=== PATIENT | female | born 1985 | race Caucasian/White ===

== ENCOUNTER 2017-12-22 09:41 | Emergency (ER) | payer BC ==
[~2017-12-22] VITALS: Ht 162.6 cm; Wt 55.0 kg
[2017-12-22] MEDS ORDERED: SODIUM CHLORIDE 0.9% 1,000 ML IV ONE (09:47)
[2017-12-22] MEDS ORDERED: ONDANSETRON HCL 4MG/2ML VIAL IV STA (09:47)
[2017-12-22] MEDS ORDERED: KETOROLAC 30MG/ML VIAL IV STA (09:55)
[2017-12-22] MEDS ORDERED: DIPHENHYDRAMINE 50MG CAPSULE PO ONE (10:00)
[2017-12-22] MEDS ORDERED: METOCLOPRAMIDE HCL 10MG/2ML VIAL IV ONE (10:00)
[2017-12-22 10:30] LABS: BASOPHILS % 0.2 % (0.0-2.0); EOSINOPHILS % 0.3 % (0.0-5.0); HEMATOCRIT. 36.1 % (36.0-48.0); HEMOGLOBIN. 12.9 g/dL (12.0-16.0); LYMPHOCYTES % 15.9 % (20.0-50.0); MEAN CORPUSCULAR HEMOGLOBIN 33.1 pg (28.0-32.0); MEAN CORPUSCULAR VOLUME 93.1 fL (81.0-99.0); NEUTROPHILS % 77.6 % (40.0-76.0); PLATELET 188 x1000/uL (130-400); RED BLOOD CELL COUNT 3.88 mill/uL (4.2-5.4); RED CELL DISTRIBUTION WIDTH 11.7 % (11.6-14.6)
[2017-12-22 10:43] LABS: CHLORIDE 105 mEq/L (98-107)
[2017-12-22] MEDS ORDERED: LORAZEPAM 0.5MG TABLET PO ONE (11:15)
[2017-12-22 11:49] LABS: CLARITY URINE CLEAR (CLEAR); COLOR URINE YELLOW (YELLOW); KETONES URINE 1+ (NEGATIVE); LEUKOCYTE ESTERASE URINE TRACE (NEGATIVE); NITRITE URINE NEGATIVE (NEGATIVE); OCCULT BLOOD URINE NEGATIVE (NEGATIVE); PH URINE 7.5 (4.5-8.0); PROTEIN URINE NEGATIVE (NEGATIVE); SPECIFIC GRAVITY URINE 1.015 (1.005-1.030); UROBILINOGEN URINE 0.2 E.U./dL (0.2-1.0)
[2017-12-22 11:49] LABS: HCG SCREEN NEGATIVE
[2017-12-22 12:02] VITALS: BP 122/84
== END 2017-12-22 12:07 | disposition home or self-care (01) ==
LOC: ER 10:05
DX: R10.9 Unspecified abdominal pain (principal); R11.2 Nausea with vomiting, unspecified; Z88.8 Allergy status to other drugs, medicaments and biological substances
CPT/HCPCS: 36415; 80053; 81003; 83690; 84703; 85025; 96361; 96374; 96375; 99284; J1885; J2765; J7030; Z7610